=== PATIENT | male | born 1955 | race Caucasian/White ===

== ENCOUNTER 2020-11-13 21:48 | Outpatient (CLI) | payer OTHER, MEDICARE | END 2020-11-13 21:49 | disposition home or self-care (01) | LOC: COV 21:48 | PROVIDERS: ATTEND Family Medicine | DX: Z20.822 Contact with and (suspected) exposure to COVID-19 (principal) ==

== ENCOUNTER 2021-04-19 05:41 | Outpatient (CLI) | payer OTHER | END 2021-04-19 05:42 | disposition EMS.NT | LOC: EMS 05:41 | DX: R42 Dizziness and giddiness (principal) ==

== ENCOUNTER 2022-12-24 13:42 | Outpatient (CLI) | payer OTHER ==
--- NOTE | 2022-12-25 09:24 | XRAY Report ---
PROCEDURE: Lumbar Spine 2 View INDICATIONS: LOW BACK PAIN TECHNIQUE: 2 views of the lumbar spine were acquired. COMPARISON: None. FINDINGS: Bones: 5 [id number] vertebrae are present. Minimal left convexity curvature centered at L3-L4. 4 mm retrolisthesis L3 on L4, 2 mm retrolisthesis L2 on L3. Moderate multilevel degenerative changes with disc height loss, endplate spurring, and facet arthropathy. No vertebral body compression frac tures. Partially imaged right hip arthroplasty. Soft tissues: Overlying bowel gas pattern is normal. Vascular calcifications are present.. IMPRESSION: Moderate multilevel degenerative changes of the lumbar spine. Reviewed by: William Estevez MD on 12/25/2022 9:22 AM PST Approved by: William Estevez MD on 12/25/2022 9:22 AM PST Station ID: [id number]
--- NOTE | 2022-12-25 09:27 | XRAY Report ---
PROCEDURE: Hip w/Pelvis 2-3V RT INDICATIONS: LOW BACK PAIN TECHNIQUE: AP pelvis with lateral view(s) of the right hip(s). COMPARISON: None. FINDINGS: Bones: No acute fractures or dislocations. Pelvic ring appears intact. Postsurgical changes from r ight hip arthroplasty. Hardware appears intact. At least moderate left hip degenerative changes also demonstrated. Soft tissues: The visualized bowel gas pattern is normal. No suspicious soft tissue calcifications. IMPRESSION: 1. Postsurgical changes from right hip arthroplasty. 2. No acute fracture identified. 3. Degenerative changes of the left hip are present. 4. If symptoms persist, follow-up radiographs and/or CT may be helpful for further evaluation. Reviewed by: William Estevez MD on 12/25/2022 9:25 AM PST Approved by: William Estevez MD on 12/25/2022 9:25 AM PST Station ID: [id number]
== END 2022-12-24 13:43 | disposition home or self-care (01) ==
LOC: DI 13:42
PROVIDERS: ATTEND Internal Medicine
DX: M51.36 Other intervertebral disc degeneration, lumbar region (principal); M16.12 Unilateral primary osteoarthritis, left hip; Z96.641 Presence of right artificial hip joint